=== PATIENT | female | born 2000 | race Caucasian/White ===

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

== ENCOUNTER 2020-05-22 11:10 | Emergency (ER) | payer OTHER, SELFPAY | END 2020-05-22 12:13 | disposition home or self-care (01) | LOC: ERS 11:10 | DX: S06.0X0A Concussion without loss of consciousness, initial encounter (principal); W22.8XXA Striking against or struck by other objects, initial encounter | CPT/HCPCS: 99283 ==